=== PATIENT | male | born 1975 | race Caucasian/White ===

== ENCOUNTER 2020-05-21 18:23 | Emergency (ER) | payer MEDICAID ==
[2020-05-21 18:26] VITALS: BP 119/79; PULSE 81; O2SAT 96
--- NOTE | 2020-05-21 18:44 | ERPHSYRPT ---
- History of Present Illness Time Seen by Provider: 05/21/20 18:44 Source: patient, police Exam Limitations: no limitations Patient Subjective Stated Complaint: got into fight with mom last night, he sent a txt to hes mom harming himself, pt is unsure who called the police Triage Nursing Assessment: pt arrived willing, he states he was just mad and does not want self Physician History: This is a 45-year-old white male who presents with the police because of concern for possible suicidal expression. Patient and his mother gotten a significant argument last evening. He voiced that he guesses that he would just rather go be with his dad who committed suicide several years ago.. Today, he sent text that suggested that he may be suicidal. She called the police and the police brought him here for evaluation. Patient states he denies any suicidal ideation or homicidal ideation. Patient states he made those comments out of anger and frustration. Patient states he has a lot to live for and will not be harming himself. States that he is noticed some burning with urination but no other medical complaints. He is not short of breath, he has no chest pain. He has no abdominal pain. States that we will find Xanax in his urine. I explained to the patient the process of allowing us to complete her work-up and contact mental health. He was told he was not allowed to leave and if he did we would end up calling law enforcement to sit with him and possibly even handcuffed him to the bed. Timing/Duration: today Severity of Symptoms-Max: mild Severity of Symptoms-Current: mild Context related to: parent Suicidal thoughts: other (Expression out of frustration) Associated Symptoms: anxiety, depressed, frustrated Previous symptoms: no prior history Allergies/Adverse Reactions: Penicillins Allergy (Mild, Verified 05/21/20 18:33) Home Medications: No Home Meds [No Home Meds] 0 ea DAILY 01/31/12 [History] Hx Tetanus, Diphtheria Vaccination/Date Given: Yes Hx Influenza Vaccination/Date Given: No Hx Pneumococcal Vaccination/Date Given: No Immunizations Up to Date: Yes Travel Risk - International Travel Have you traveled outside of the country in past 3 weeks: No - Coronavirus Screening Are you exhibiting any of the following symptoms?: No Close contact with a COVID-19 positive Pt in past 14-21 Days: No - Past Medical History Pertinent Past Medical History: No Neurological History: No Pertinent History ENT History: No Pertinent History Cardiac History: No Pertinent History Respiratory History: No Pertinent History Endocrine Medical History: No Pertinent History Musculoskeletal History: No Pertinent History GI Medical History: No Pertinent History History: No Pertinent History Psycho-Social History: No Pertinent History Male Reproductive Disorders: No Pertinent History - Past Surgical History Past Surgical History: Yes - Social History Smoking Status: Current every day smoker Exposure to second hand smoke: Yes Drug Use: marijuana Patient Lives Alone: No - Review of Systems Constitutional: No Symptoms Eyes: No Symptoms Ears, Nose, & Throat: No Symptoms Respiratory: No Symptoms Cardiac: No Symptoms Abdominal/Gastrointestinal: No Symptoms Genitourinary Symptoms: Dysuria Musculoskeletal: No Symptoms Skin: No Symptoms Neurological: No Symptoms Psychological: Other (Expressed suicidal thoughts out of frustration because of an argument with his mother) Endocrine: No Symptoms Hematologic/Lymphatic: No Symptoms Immunological/Allergic: No Symptoms All Other Systems: Reviewed and Negative - Nursing Vital Signs Nursing Vital Signs: Initial Vital Signs Temperature 98.0 F 05/21/20 18:24 Pulse Rate 81 05/21/20 18:24 Respiratory Rate 18 05/21/20 18:24 Blood Pressure 119/79 05/21/20 18:24 O2 Sat by Pulse Oximetry 96 05/21/20 18:24 Pain Scale Pain Intensity 0 - Physical Exam General Appearance: no apparent distress, alert, anxiety Eyes, Ears, Nose, Throat Exam: normal ENT inspection, moist mucous membranes Neck Exam: normal inspection, non-tender, supple, full range of motion Respiratory Exam: normal breath sounds, lungs clear, airway intact, No chest tenderness, No respiratory distress Cardiovascular Exam: regular rate/rhythm, normal heart sounds, normal peripheral pulses Gastrointestinal/Abdominal Exam: soft, normal bowel sounds, No tenderness Extremities Exam: normal inspection, normal range of motion, No evidence of injury Current Suicidality: denies suicide plan Neurological Exam: alert, normal mood/affect, calm, director of design II-XII nml as tested, oriented x 3 Appearance: appropriate appearance, appropriate insight, neat Behavior/Eye Contact/Speech: alert & cooperative, good eye contact, normal speech Thoughts/Hallucinations: normal thought pattern, no apparent hallucination Skin Exam: normal color, warm, dry SpO2 Interpretation: normal SpO2: 96 O2 Delivery: Room Air - Course Nursing assessment & vital signs reviewed: Yes EKG Interpreted by Me: RATE (73), Sinus Rhythm, NORMAL AXIS, NORMAL INTERVALS, NORMAL QRS Ordered Tests: Active Orders 24 hr Category Date Time Status EKG-ER Only STAT Care 05/21/20 18:44 Active ACETAMINOPHEN Stat Lab 05/21/20 19:10 Completed CBC W DIFF Stat Lab 05/21/20 19:10 Completed CMP Stat Lab 05/21/20 19:10 Completed CULTURE,URINE Stat Lab 05/21/20 20:33 Received ETHYL ALCOHOL Stat Lab 05/21/20 19:10 Completed SALICYLATE Stat Lab 05/21/20 19:10 Completed UA W/RFX UR CULTURE Stat Lab 05/21/20 20:33 Completed Urine Triage Profile Stat Lab 05/21/20 20:33 Completed Medication Summary Discontinued Medications Generic Name Dose Route Start Last Admin Trade Name Freq PRN Reason Stop Dose Admin Ceftriaxone Sodium 1,000 mg 05/21/20 22:16 Rocephin 1000 Mg Inj IM 05/21/20 22:17 STAT ONE Lab/Rad Data: Laboratory Result Diagrams 05/21/20 19:10 05/21/20 19:10 Laboratory Results 05/21/20 05/21/20 05/21/20 Range/Units 20:33 20:33 19:10 WBC (4.0-10.5) K/mm3 RBC (4.1-5.6) M/mm3 Hgb (12.5-18.0) gm/dl Hct (42-50) % MCV (78-100) fl MCH (26-32) pg MCHC (32-36) g/dl RDW (11.5-14.0) % Plt Count (150-450) K/mm3 MPV (7.5-11.0) fl Gran % (36.0-66.0) % Eos # (Auto) (0-0.5) Absolute Lymphs (auto) (1.0-4.6) Absolute Monos (auto) (0.0-1.3) Lymphocytes % (24.0-44.0) % Monocytes % (0.0-12.0) % Eosinophils % (0.00-5.0) % Basophils % (0.0-0.4) % Absolute Granulocytes (1.4-6.9) Basophils # (0-0.4) Sodium 137 (137-145) mmol/L Potassium 4.3 (3.5-5.1) mmol/L Chloride 102 (98-107) mmol/L Carbon Dioxide 27 (22-30) mmol/L Anion Gap 11.6 (5-15) MEQ/L BUN 19 (9-20) mg/dL Creatinine 1.17 (0.66-1.25) mg/dL Estimated GFR > 60.0 ML/MIN Glucose 89 (74-106) mg/dL Calcium 9.4 (8.4-10.2) mg/dL Total Bilirubin 0.60 (0.2-1.3) mg/dL AST 27 (17-59) U/L ALT 14 (0-50) U/L Alkaline Phosphatase 90 (38-126) U/L Serum Total Protein 7.8 (6.3-8.2) g/dL Albumin 4.5 (3.5-5.0) g/dL Urine Color CARLOS (YELLOW) Urine Appearance CLOUDY (CLEAR) Urine pH 5.0 (5-6) Ur Specific [place] 1.028 (1.005-1.025) Urine Protein 100 (Negative) Urine Ketones NEGATIVE (NEGATIVE) Urine Blood SMALL (0-5) Amol/ul Urine Nitrite NEGATIVE (NEGATIVE) Urine Bilirubin NEGATIVE (NEGATIVE) Urine Urobilinogen 4 (0-1) mg/dL Ur Leukocyte Esterase LARGE (NEGATIVE) Urine WBC (Auto) >100 (0-5) /HPF Urine RBC (Auto) 6-10 (0-2) /HPF U Epithel Cells (Auto) NONE (FEW) /HPF Urine Bacteria (Auto) FEW (NEGATIVE) /HPF Amorphous Crystals FEW (NEGATIVE) /HPF Urine Mucus (Auto) MANY (NEGATIVE) /HPF Urine Culture Reflexed YES (NO) Urine Glucose NEGATIVE (NEGATIVE) mg/dL Salicylates < 1.0 L (2-20) mg/dL Urine Opiates Level NEGATIVE (NEGATIVE) Ur Methadone NEGATIVE (NEGATIVE) Acetaminophen < 10 L (10-30) ug/ml Urine Barbiturates NEGATIVE (NEGATIVE) Ur Phencyclidine (PCP) NEGATIVE (NEGATIVE) Urine Amphetamine POSITIVE (NEGATIVE) U Benzodiazepine Level POSITIVE (NEGATIVE) Urine Cocaine NEGATIVE (NEGATIVE) Urine Marijuana (THC) POSITIVE (NEGATIVE) Ethyl Alcohol < 10 (0-10) mg/dL 05/21/20 Range/Units 19:10 WBC 8.5 (4.0-10.5) K/mm3 RBC 4.22 (4.1-5.6) M/mm3 Hgb 12.5 (12.5-18.0) gm/dl Hct 37.4 L (42-50) % MCV 88.6 (78-100) fl MCH 29.6 (26-32) pg MCHC 33.4 (32-36) g/dl RDW 13.3 (11.5-14.0) % Plt Count 337 (150-450) K/mm3 MPV 8.4 (7.5-11.0) fl Gran % 75.7 H (36.0-66.0) % Eos # (Auto) 0.16 (0-0.5) Absolute Lymphs (auto) 1.50 (1.0-4.6) Absolute Monos (auto) 0.38 (0.0-1.3) Lymphocytes % 17.6 L (24.0-44.0) % Monocytes % 4.4 (0.0-12.0) % Eosinophils % 1.9 (0.00-5.0) % Basophils % 0.4 (0.0-0.4) % Absolute Granulocytes 6.47 (1.4-6.9) Basophils # 0.03 (0-0.4) Sodium (137-145) mmol/L Potassium (3.5-5.1) mmol/L Chloride (98-107) mmol/L Carbon Dioxide (22-30) mmol/L Anion Gap (5-15) MEQ/L BUN (9-20) mg/dL Creatinine (0.66-1.25) mg/dL Estimated GFR ML/MIN Glucose (74-106) mg/dL Calcium (8.4-10.2) mg/dL Total Bilirubin (0.2-1.3) mg/dL AST (17-59) U/L ALT (0-50) U/L Alkaline Phosphatase (38-126) U/L Serum Total Protein (6.3-8.2) g/dL Albumin (3.5-5.0) g/dL Urine Color (YELLOW) Urine Appearance (CLEAR) Urine pH (5-6) Ur Specific [place] (1.005-1.025) Urine Protein (Negative) Urine Ketones (NEGATIVE) Urine Blood (0-5) Amol/ul Urine Nitrite (NEGATIVE) Urine Bilirubin (NEGATIVE) Urine Urobilinogen (0-1) mg/dL Ur Leukocyte Esterase (NEGATIVE) Urine WBC (Auto) (0-5) /HPF Urine RBC (Auto) (0-2) /HPF U Epithel Cells (Auto) (FEW) /HPF Urine Bacteria (Auto) (NEGATIVE) /HPF Amorphous Crystals (NEGATIVE) /HPF Urine Mucus (Auto) (NEGATIVE) /HPF Urine Culture Reflexed (NO) Urine Glucose (NEGATIVE) mg/dL Salicylates (2-20) mg/dL Urine Opiates Level (NEGATIVE) Ur Methadone (NEGATIVE) Acetaminophen (10-30) ug/ml Urine Barbiturates (NEGATIVE) Ur Phencyclidine (PCP) (NEGATIVE) Urine Amphetamine (NEGATIVE) U Benzodiazepine Level (NEGATIVE) Urine Cocaine (NEGATIVE) Urine Marijuana (THC) (NEGATIVE) Ethyl Alcohol (0-10) mg/dL - Progress Progress: unchanged Progress Note: 05/21/20 22:22 Patient eloped while we were evaluating a patient who is actively bleeding and a second patient who was having chest pain. Patient was told at the time of his admission by me that he is required to stay and complete the evaluation including lab work-up, EKG and mental health evaluation. He was told that if he eloped we would call lawn for spent to watch him at bedside and to possibly even handcuff him to the bed. 05/22/20 00:58 The police still have yet to retrieve the patient. Last known location is [facility]. We will remove the patient from the board. - Departure Departure Disposition: AMA Clinical Impression: Suicidal ideation Condition: Stable Critical Care Time: No Referrals: SHANIQUE HADLEY [Primary Care Provider] -
[2020-05-21 19:17] LABS: Absolute Neutrophil Ct (ANC) 6.47 (1.4-6.9); BASOPHIL % 0.4 % (0.0-0.4); Basophil (Absolute #) 0.03 (0-0.4); Eosinophil % 1.9 % (0.00-5.0); Eosinophil (Absolute #) 0.16 (0-0.5); Hematocrit 37.4 % (42-50); Hemoglobin 12.5 gm/dl (12.5-18.0); Lymphocytes % 17.6 % (24.0-44.0); Mean Cell Volume 88.6 fl (78-100); Mean Corpuscular Hemoglobin 29.6 pg (26-32); Mean Corpuscular Hgb Concent. 33.4 g/dl (32-36); Mean Platelet Volume 8.4 fl (7.5-11.0); Monocyte (Absolute #) 0.38 (0.0-1.3); Monocytes % 4.4 % (0.0-12.0); Neutrophil % 75.7 % (36.0-66.0); Platelet Count 337 K/mm3 (150-450); Red Blood Count 4.22 M/mm3 (4.1-5.6); Red Cell Distribution Width 13.3 % (11.5-14.0); White Blood Count 8.5 K/mm3 (4.0-10.5)
[2020-05-21 19:28] LABS: ALBUMIN 4.5 g/dL (3.5-5.0); ALKALINE PHOSPHATASE 90 U/L (38-126); ANION GAP 11.6 MEQ/L (5-15); BLOOD UREA NITROGEN 19 mg/dL (9-20); CHLORIDE 102 mmol/L (98-107); Calcium 9.4 mg/dL (8.4-10.2); Carbon Dioxide 27 mmol/L (22-30); Creatinine 1 1.17 mg/dL (0.66-1.25); EST GLOMERULAR FILTRATION RATE > 60.0 ML/MIN; Glucose 89 mg/dL (74-106); Potassium 4.3 mmol/L (3.5-5.1); SGOT/AST 27 U/L (17-59); SGPT/ALT 14 U/L (0-50); SODIUM 137 mmol/L (137-145); Total Protein 7.8 g/dL (6.3-8.2)
[2020-05-21 19:29] LABS: ACETAMINOPHEN < 10 ug/ml (10-30); ETHYL ALCOHOL < 10 mg/dL (0-10); SALICYLATE < 1.0 mg/dL (2-20)
[2020-05-21 20:41] LABS: Amourphous Crystal FEW /HPF (NEGATIVE); Appearance CLOUDY (CLEAR); Bacteria FEW /HPF (NEGATIVE); Bilirubin NEGATIVE (NEGATIVE); Blood SMALL Ery/ul (0-5); Glucose NEGATIVE (NEGATIVE); Ketones NEGATIVE (NEGATIVE); Leukocyte Esterase LARGE (NEGATIVE); Mucus MANY /HPF (NEGATIVE); Nitrite NEGATIVE (NEGATIVE); Protein,Urine Dip 100 (Negative); Specific Gravity 1.028 (1.005-1.025); Urobilinogen 4 mg/dL (0-1); WBC >100 /HPF (0-5)
[2020-05-21 20:53] LABS: Amphetamine,Urine POSITIVE (NEGATIVE); Barbiturate,Urine NEGATIVE (NEGATIVE); Benzodiazepine,Urine POSITIVE (NEGATIVE); Cocaine,Urine NEGATIVE (NEGATIVE); Methadone,Urine NEGATIVE (NEGATIVE); Opiate,Urine NEGATIVE (NEGATIVE); PCP,Urine NEGATIVE (NEGATIVE); THC,Urine POSITIVE (NEGATIVE)
[2020-05-21] MEDS ORDERED: Rocephin 1000 MG INJ IM ONE (22:16)
== END 2020-05-21 22:10 | disposition left against medical advice (07) ==
LOC: ED 18:23
DX: R45.851 Suicidal ideations (principal)
CPT/HCPCS: 36415; 80053; 80307; 81001; 85025; 87086; 87491; 87591; 93005; 99284; G0480

== ENCOUNTER 2020-07-27 13:59 | Emergency (ER) | payer SELFPAY ==
[2020-07-27 14:13] VITALS: O2SAT 100
[2020-07-27] MEDS ORDERED: ROCEPHIN 250 MG INJ IM ONE (14:14)
[2020-07-27] MEDS ORDERED: Vibramycin 100 MG PO ONE (14:14)
--- NOTE | 2020-07-27 14:23 | ERPHSYRPT ---
- History of Present Illness Time Seen by Provider: 07/27/20 14:10 Source: patient Exam Limitations: no limitations Patient Subjective Stated Complaint: Pt states "I have gonnorhea and I have not been treated yet. My penis hurts when I pee." Triage Nursing Assessment: Pt presented alert and oriented X 3, skin pwd Pt ambulates with an uprigth steady gait, able to speak in clear full sentences pt in no apparent respiratory distress. Pt stated he could not get into [facility] for help. Physician History: Patient had a positive gonorrhea test 2 months ago, but has not had treatment at the outpatient clinic during these past two months and comes in with penile discharge, dysuria and mild discomfort in his testicular area. Timing/Duration: week(s) (eight), intermittent, sudden Activites at Onset: other (urination) Quality: burning Onset Location: right testicle, left testicle, other (penis) Pain Radiation: none Severity of Pain-Max: moderate Severity of Pain-Current: mild Modifying Factors: Worsens With: movement, palpation, urinating Associated Symptoms: dysuria, No abdominal pain, No fever, No chills, No diaphoresis, No nausea, No vomiting, No polyuria, No urinary frequency, No loss of bladder control, No lower back pain, No mass, No swelling, No syncope Prior abdominal problems: none Sexual intercourse history: less than 2 months ago, unprotected intercourse, other (positive gonorrhea test) Allergies/Adverse Reactions: Penicillins Allergy (Mild, Verified 05/21/20 18:33) Home Medications: No Home Meds [No Home Meds] 0 ea DAILY 01/31/12 [History] Hx Tetanus, Diphtheria Vaccination/Date Given: Yes Hx Influenza Vaccination/Date Given: No Hx Pneumococcal Vaccination/Date Given: No Immunizations Up to Date: Yes Travel Risk - International Travel Have you traveled outside of the country in past 3 weeks: No - Coronavirus Screening Are you exhibiting any of the following symptoms?: No Close contact with a COVID-19 positive Pt in past 14-21 Days: No - Past Medical History Pertinent Past Medical History: No Neurological History: No Pertinent History ENT History: No Pertinent History Cardiac History: No Pertinent History Respiratory History: No Pertinent History Endocrine Medical History: No Pertinent History Musculoskeletal History: No Pertinent History GI Medical History: No Pertinent History History: No Pertinent History Psycho-Social History: No Pertinent History Male Reproductive Disorders: No Pertinent History - Past Surgical History Past Surgical History: Yes - Social History Smoking Status: Current every day smoker How long have you smoked: years Exposure to second hand smoke: Yes Drug Use: marijuana Patient Lives Alone: No - Review of Systems Constitutional: No Fever, No Chills Eyes: No Discharge, No Eye Pain, No Vision Changes Ears, Nose, & Throat: No Sinus Drainage, No Throat Pain Respiratory: No Cough, No Dyspnea Cardiac: No Chest Pain, No Edema, No Syncope Abdominal/Gastrointestinal: No Abdominal Pain, No Nausea, No Vomiting, No Diarrhea, No Hematemesis, No Hematochezia Genitourinary Symptoms: Dysuria, Testicle Pain, No Hematuria, No Flank Pain Musculoskeletal: No Back Pain, No Neck Pain, No Joint Swelling, No Myalgias Skin: No Pruritis, No Rash Neurological: No Dizziness, No Focal Weakness, No Headache, No Sensory Changes Psychological: No Symptoms, No Anxiety Endocrine: No Symptoms, No Polyuria Hematologic/Lymphatic: No Easy Bleeding, No Easy Bruising All Other Systems: Reviewed and Negative - Nursing Vital Signs Nursing Vital Signs: Initial Vital Signs Temperature 98.4 F 07/27/20 14:03 Pulse Rate 99 H 07/27/20 14:03 Respiratory Rate 20 07/27/20 14:03 Blood Pressure 127/88 07/27/20 14:03 O2 Sat by Pulse Oximetry 100 07/27/20 14:03 Pain Scale Pain Intensity 4 - Physical Exam General Appearance: no apparent distress, alert Eye Exam: PERRL/EOMI, No scleral icterus, No pale conjunctivae Ears, Nose, Throat Exam: pharynx normal, moist mucous membranes Neck Exam: normal inspection, non-tender, supple, full range of motion, No meningismus Respiratory Exam: normal breath sounds, lungs clear, No respiratory distress, No diminished breath sounds, No accessory muscle use, No crackles/rales, No rhonchi, No wheezing Cardiovascular Exam: regular rate/rhythm, normal heart sounds, normal peripheral pulses, No edema Gastrointestinal/Abdomen Exam: soft, normal bowel sounds, No tenderness, No distention, No guarding, No rebound Male Genital Exam: no hernia, epididymal tenderness (bilaterally, mild), uncircumcised (chaperoned by Paul Purdy RN), No bleeding, No erythema, No inguinal tenderness, No lesions, No scrotum tenderness (R), No scrotum tenderness (L), No testicular tenderness (R), No testicular tenderness (L), No urethral discharge, No herpes-like lesion(s), No inguinal lymphadenopathy, No scrotal swellling Back Exam: normal inspection, No CVA tenderness, No vertebral tenderness, No rash Extremity Exam: normal inspection, normal range of motion, pelvis stable, No pedal edema Neurologic Exam: alert, oriented x 3, cooperative, refractory specialist II-XII nml as tested, sensation nml, No motor deficits Skin Exam: normal color, warm, dry, No rash Lymphatic Exam: No inguinal node tender (L), No inguinal node tender (R) SpO2 Interpretation: normal SpO2: 100 O2 Delivery: Room Air - Course Nursing assessment & vital signs reviewed: Yes Ordered Tests: Active Orders 24 hr Category Date Time Status UA W/RFX UR CULTURE Stat Lab 07/27/20 14:23 Completed Medication Summary Discontinued Medications Generic Name Dose Route Start Last Admin Trade Name Klaus PRN Reason Stop Dose Admin Ceftriaxone Sodium 250 mg 07/27/20 14:14 07/27/20 14:26 Rocephin 250 Mg Inj IM 07/27/20 14:15 250 mg STAT ONE Administration Ceftriaxone Sodium Confirm 07/27/20 14:25 Rocephin 500 Mg Inj Administered 07/27/20 14:26 Dose 500 mg .ROUTE .STK-MED ONE Doxycycline Hyclate 100 mg 07/27/20 14:14 07/27/20 14:26 Vibramycin 100 Mg PO 07/27/20 14:15 100 mg STAT ONE Administration Doxycycline Hyclate Confirm 07/27/20 14:25 Vibramycin 100 Mg Administered 07/27/20 14:26 Dose 100 mg .ROUTE .STK-MED ONE Lidocaine HCl Confirm 07/27/20 14:25 Xylocaine 1% Hcl 20 Ml Mdv Administered 07/27/20 14:26 Dose 1 ml .ROUTE .STK-MED ONE Lab/Rad Data: Laboratory Results 07/27/20 Range/Units 14:23 Urine Color CARLOS (YELLOW) Urine Appearance SLIGHTLY CLOUDY (CLEAR) Urine pH 6.0 (5-6) Ur Specific [place]i 1.028 (1.005-1.025) Urine Protein 30 (Negative) Urine Ketones TRACE (NEGATIVE) Urine Blood NEGATIVE (0-5) Amol/ul Urine Nitrite NEGATIVE (NEGATIVE) Urine Bilirubin NEGATIVE (NEGATIVE) Urine Urobilinogen 4 (0-1) mg/dL Ur Leukocyte Esterase TRACE (NEGATIVE) Urine WBC (Auto) 6-10 (0-5) /HPF Urine RBC (Auto) 3-5 (0-2) /HPF U Epithel Cells (Auto) NONE (FEW) /HPF Urine Bacteria (Auto) NONE SEEN (NEGATIVE) /HPF Urine Mucus (Auto) SLIGHT (NEGATIVE) /HPF Urine Culture Reflexed NO (NO) Urine Glucose NEGATIVE (NEGATIVE) mg/dL - Progress Progress: unchanged Progress Note: 07/27/20 14:38 Reviewed patient's gonococcal culture from the urine from 05/21/2020 which was positive; patient had no signs of epididymal abscess on his examination so no ultrasound or immediate urologic consultation needed at this time as he had mild tenderness to bilateral epididymides with no enlargement that was palpable 07/27/20 15:00 Patient tolerated well the IM Rocephin and can be discharged home to finish his doxycycline as an outpatient 07/27/20 15:02 Patient had a positive gonorrhea test from a urine sample from 2 months ago and has remained symptomatic but untreated. Patient examination did not show any signs of epididymal abscess or any significant orchitis but did have some mild tenderness over bilateral epididymis so he will be treated for gonorrhea and epididymitis with doxycycline for 10 days as well as he received Rocephin IM here in the emergency department. The rest of his examination was benign and he understands not to have sexual intercourse till he finishes his antibiotic and have all of his partners treated for gonorrhea also as he did have a positive gonococcal culture from the urine on 05/21/2020. Patient understands importance of follow-up if is not any better and I reviewed them in detail what signs and s ymptoms to return back to the emergency department. Patient also understands is very important to finish his antibiotic course due to his examination today and understands return back to emergency room if he has any worsening pain, any fever, new hematuria or new swelling in his genitourinary area at any time for immediate reevaluation back in the emergency department. Patient did not require immediate consultation with urology today as his examination did not show any vascular compromise/mass/swelling/or abscess on his epididymis or testicular examination bilaterally. Counseled pt/family regarding: lab results, diagnosis, need for follow-up - Departure Departure Disposition: Home Clinical Impression: Gonococcal urethritis in male, Bilateral epididymitis, Elevated blood-pressure reading without diagnosis of hypertension Condition: Good Critical Care Time: No Referrals: SHANIQUE HADLEY [Primary Care Provider] - Follow Up with PCP/3 days Instructions: DASH Diet, Urinary Tract Infection, Adult (DC), Epididymitis (DC), Gonorrhea (DC), Urethritis (DC) Additional Instructions: Finish your antibiotic as instructed. Do not have sexual intercourse until you have finished all of your antibiotic. Your partner should be treated also. Return immediately back to the emergency room if you have any worsening testicular pain, any new testicular swelling, persistent penile drainage, new penile lesions, new growing swelling, new abdominal pain, new fever, new back pain, diarrhea that cannot be controlled, or any other concerning signs or symptoms that were not present at today's emergency room visit for immediate reevaluation in the emergency department Forms: Work/School Release Form Prescriptions: Doxycycline Hyclate 100 mg [Vibramycin 100 MG] 100 mg PO BID #20 tab
[2020-07-27] MEDS ORDERED: Vibramycin 100 MG ONE (14:25)
[2020-07-27] MEDS ORDERED: Rocephin 500 MG INJ ONE (14:25)
[2020-07-27] MEDS ORDERED: XYLOCAINE 1% HCL 20 ML MDV ONE (14:25)
[2020-07-27 14:41] LABS: Appearance SLIGHTLY CLOUDY (CLEAR); Bilirubin NEGATIVE (NEGATIVE); Blood NEGATIVE Ery/ul (0-5); Glucose NEGATIVE (NEGATIVE); Ketones TRACE (NEGATIVE); Leukocyte Esterase TRACE (NEGATIVE); Mucus SLIGHT /HPF (NEGATIVE); Nitrite NEGATIVE (NEGATIVE); Protein,Urine Dip 30 (Negative); Specific Gravity 1.028 (1.005-1.025); Urobilinogen 4 mg/dL (0-1)
[2020-07-27 14:42] LABS: Bacteria NONE SEEN /HPF (NEGATIVE)
[2020-07-27 15:13] VITALS: BP 120/80; PULSE 92
== END 2020-07-27 15:15 | disposition home or self-care (01) ==
LOC: ED 13:59
DX: A54.01 Gonococcal cystitis and urethritis, unspecified (principal); N45.1 Epididymitis; R03.0 Elevated blood-pressure reading, without diagnosis of hypertension; R30.0 Dysuria; N50.812 Left testicular pain; N50.811 Right testicular pain
CPT/HCPCS: 81001; 96372; 99284; J0696; A9270-GY